=== PATIENT | male | born 1955 | race Caucasian/White ===

== ENCOUNTER → 2017-04-11 | Outpatient (CLI) | payer OTHER ==
[2017-04-11 14:45] LABS: BASO # 0.1 10*3/uL (0.0-0.1); BASO % 0.5 % (0.0-1.0); EOS # 0.2 10*3/uL (0.0-0.4); HEMATOCRIT 46.6 % (42.0-52.0); LYMPH # 3.9 10*3/uL (1.3-4.4); LYMPH % 33.1 % (27.0-41.0); MEAN CELL VOLUME 90.3 fl (80.0-94.0); MEAN CORPUSCULAR HGB CONC 34.3 g/dl (33.0-37.0); MEAN PLATELET VOLUME 8.9 fl (9.6-12.3); MONO # 0.5 10*3/uL (0.1-1.0); MONO % 4.3 % (3.0-9.0); NEUT % 59.8 % (47.0-73.0); PLATELET COUNT AUTOMATED 280 10*3/uL (130-400); RED BLOOD COUNT 5.16 10*6/uL (4.50-5.90); RED CELL DISTRI WIDTH 13.2 % (0-14.5); WHITE BLOOD COUNT 11.6 10*3/uL (4.8-10.8)
== END | disposition home or self-care (01) ==
LOC: LAB 14:27
PROVIDERS: Internal Medicine Endocrinology, Diabetes & Metabolism
DX: E11.65 Type 2 diabetes mellitus with hyperglycemia (principal); R53.83 Other fatigue; E29.1 Testicular hypofunction; E05.90 Thyrotoxicosis, unspecified without thyrotoxic crisis or storm; E55.9 Vitamin D deficiency, unspecified

== ENCOUNTER 2018-08-18 14:35 | Inpatient (IN) | payer OTHER ==
[~2018-08-18] VITALS: Ht 170.1 cm; Wt 106.8 kg
[2018-08-18] VITALS (7 sets, daily range): BP systolic 102–125; BP diastolic 49–73
--- NOTE | ~2018-08-18 | EKG ---
[place], [place] ELECTROCARDIOGRAM REPORT NAME: JOSETTE QUINTEROS UNIT #: [id number] ROOM: [facility] DOCTOR: RAZA DRAFT REPORT BIRTHDATE: [birth year] [facility] Test Date: 2018-08-18 Test Time: 17:01:38 Pat Name: JOSETTE QUINTEROS Department: Room: [facility] Gender: M Director Erp: Giselle Howe : 1955 Requested By: LUANA CARTY PA-C Order Number: [id number] Reading MD: Alana Montiel MD Measurements Intervals [place] Rate: 92 P: 33 ND: 150 QRS: 51 QRSD: 147 T: -1 QT: 409 QTc: 507 Interpretive Statements Sinus rhythm Right bundle branch block Lateral infarct, acute Electronically Signed On 08-20-2018 9:55:28 PDT by Alana Montiel MD CM:EKGRPT:ELECTROCARDIOGRAM REPORT [id number] LUANA CARTY PA-C EPIPHANY DRAFT REPORT LUANA CARTY PA-C
[2018-08-18 16:11] LABS: BILIRUBIN NEGATIVE (NEGATIVE); BLOOD TRACE-LYSED (NEGATIVE); CLARITY CLEAR (CLEAR); COLOR YELLOW (YELLOW); GLUCOSE 3+ (NEGATIVE); KETONE TRACE (NEGATIVE); LEUKO ESTERASE TRACE (NEGATIVE); NITRITE NEGATIVE (NEGATIVE); SPECIFIC GRAVITY <= 1.005 (1.005-1.030); UROBILINOGEN 0.2 E.U./dl (0.2-1.0)
[2018-08-18 16:17] LABS: BASO # 0.1 10*3/uL (0.0-0.1); BASO % 0.5 % (0.0-1.0); EOS # 0.2 10*3/uL (0.0-0.4); EOS % 1.1 % (1.0-4.0); HEMATOCRIT 47.1 % (42.0-52.0); HEMOGLOBIN 16.7 g/dl (14.0-18.0); LYMPH # 2.9 10*3/uL (1.3-4.4); MEAN CELL VOLUME 88.2 fl (80.0-94.0); MEAN CORPUSCULAR HGB 31.3 pg (27.0-31.0); MEAN CORPUSCULAR HGB CONC 35.5 g/dl (33.0-37.0); MEAN PLATELET VOLUME 10.5 fl (9.6-12.3); MONO # 0.7 10*3/uL (0.1-1.0); MONO % 5.4 % (3.0-9.0); NEUT # 9.3 10*3/uL (2.3-7.9); NEUT % 70.5 % (47.0-73.0); PLATELET COUNT AUTOMATED 307 10*3/uL (130-400); RED BLOOD COUNT 5.34 10*6/uL (4.50-5.90); RED CELL DISTRI WIDTH 11.9 % (0-14.5); WHITE BLOOD COUNT 13.2 10*3/uL (4.8-10.8)
[2018-08-18 16:37] LABS: BACTERIA 1+; YEAST 2+
[2018-08-18 16:48] LABS: ALBUMIN 3.1 gm/dl (3.1-4.5); ALKALINE PHOSPHATASE 120 U/L (45-117); BUN 25 mg/dl (7-24); CHLORIDE 87 mmol/L (98-107); CREATININE 1.58 mg/dL (0.70-1.30); LIPASE 1087 U/L (73-393); POTASSIUM 4.3 mmol/L (3.5-5.1); SGOT/AST 7 IU/L (3-35); SGPT/ALT 14 U/L (12-78); SODIUM 122 mmol/L (136-145); TOTAL PROTEIN 6.8 gm/dL (6.4-8.2)
[2018-08-18 17:11] LABS: TROPONIN I < 0.015 ng/ml (<0.045)
[2018-08-18 17:57] LABS: ABG BASE EXCESS -4.7 mmol/L (-2.0-2.0); ABG HCO3 18.6 mmol/l (22-26); ABG O2 SATURATION 98.5 % (95-97); ARTERIAL BLOOD GAS PCO2 31.8 mmHg (35-45); ARTERIAL BLOOD GAS PH 7.385 (7.35-7.45); ARTERIAL BLOOD GAS PO2 98.9 mmHg (80-90)
--- NOTE | 2018-08-18 18:39 | NUR ---
DR RICHARDSON VERBAL ORDER TO GIVE 20MEQ OF POTASSIUM PER 1,000ML OF NORMAL SALINE. PATIENT IS ON BAG #2. WILL GIVE 40MEQ OF POTASSIUM UPON ARRIVAL BACK TO ROOM FROM CT SCAN.
--- NOTE | 2018-08-18 18:55 | NUR ---
PATIENT LACTIC 3.4 CALLED CRITICAL RESULT. LUANA DIOR NOTIFIED.
--- NOTE | 2018-08-18 19:05 | NUR ---
PATIENT REPORT TO NIEVES GIRARD.
--- NOTE | 2018-08-18 19:27 | NUR ---
CRITICAL BLOOD SUGAR OF [address] TAYLOR.
--- NOTE | 2018-08-18 20:00 | NUR ---
Time: 1999 A 62 year old MALE admitted to [facility] under services of DARLENE GAYTAN DO. Pt. arrived via bed from ER. Chief complaint: FREQUENT DIARRHEA, FREQUENT URINATION, SORE THROAT X COUPLE DAYS, NOT ABLE TO GET A BLOOD GLUCOSE LEVEL DUE TO HIGH SUGAR. INITIAL ASSESSMENT COMPLETED - SEE ASSESSMENT SCREEN. INSULIN DRIP IS RUNNING AT 8 UNITS/HOUR AT THIS TIME WITH NORMAL SALINE. PT VOICES NO COMPLAINTS AT THIS TIME. HEALTHY LIFESTYLES GUIDELINE REVIEWED. BELONGINGS ACCOUNTED FOR. BED IS LOCKED AND IN THE LOWEST POSITION, CALL LIGHT IS WITHIN REACH. ROBERTO GONZALES
[2018-08-18] MEDS ORDERED: GLUCOPHAGE1000 MG PO (20:34)
[2018-08-18] MEDS ORDERED: LISINOPRIL30 MG PO (20:35)
[2018-08-18] MEDS ORDERED: PRAVACHOL40 MG PO (20:35)
--- NOTE | 2018-08-18 20:36 | NUR ---
MED LIST DONE WITH PT. HE KNOWS HIS HOME MEDS. SEE MED LIST.
--- NOTE | 2018-08-18 21:10 | NUR ---
NOTIFIED OF CONT ELEVATED LACTIC ACID.
--- NOTE | 2018-08-18 21:52 | NUR ---
OLD DRY SCABBED AREA RIGHT MELO. NO PICS TAKEN IN ER. OCCURRED 2 MONTHS AGO.
--- NOTE | 2018-08-18 22:20 | NUR ---
RESTING IN BED WATCHING TV. CALL LIGHT IN REACH. INSULIN GTT CONT AT 11UINTS/HR. NSS INFUSING AT 150CC/HR. NO C/O'S N/V VOICED AT PRESENT.
[2018-08-19] VITALS: BP 108/72
--- NOTE | 2018-08-19 00:14 | NUR ---
RESTING IN BED WITH EYES CLOSED. APPEARS TO BE SLEEPING. TITRATING INSULIN GTT DOWN FOR DECREASING BLOOD SUGARS. PT IS ASYMPTOMATIC. WILL CONT TO MONITOR. WAITING ON LAB FOR 0000 BASIC METABOLIC PANEL TO BE DRAWN.
[2018-08-19 00:52] LABS: BUN 20 mg/dl (7-24); CHLORIDE 106 mmol/L (98-107); CREATININE 1.16 mg/dL (0.70-1.30)
[2018-08-19 00:55] LABS: POTASSIUM 3.1 mmol/L (3.5-5.1); SODIUM 137 mmol/L (136-145)
--- NOTE | 2018-08-19 01:17 | NUR ---
DR. BLUE CALLED WITH BMP RESULTS. WILL PUT IN ORDERS.
--- NOTE | 2018-08-19 01:42 | NUR ---
TOOK PO KDUR WITHOU DIFFICULTY. IV FLUIDS SWITCHED TO D5/1/2 NSS AT 150CC/HR
[2018-08-19 04:00] VITALS: BP 98/52
[2018-08-19 05:43] LABS: BUN 20 mg/dl (7-24); CHLORIDE 105 mmol/L (98-107); CREATININE 1.14 mg/dL (0.70-1.30); POTASSIUM 3.6 mmol/L (3.5-5.1); SODIUM 137 mmol/L (136-145)
[2018-08-19 05:48] LABS: CHOLESTEROL 162 mg/dL (<200); HDL CHOLESTEROL 34 mg/dl (40-60); LDL CHOLESTEROL 82 mg/dL (9-159); PHOSPHOROUS 2.6 mg/dL (2.5-4.9); TRIGLYCERIDES 229 mg/dl (<150); VLDL CHOLESTEROL 46 mg/dL (6-40)
[2018-08-19 05:54] LABS: THYROID STIM HORMONE (HS) 0.546 uIU/ml (0.358-4.75)
[2018-08-19 06:01] LABS: ACT PARTIAL THROMBO TIME 21.7 SECONDS (20.8-31.5)
[2018-08-19 06:04] LABS: BASO % 0.3 % (0.0-1.0); EOS # 0.1 10*3/uL (0.0-0.4); EOS % 0.9 % (1.0-4.0); HEMATOCRIT 43.5 % (42.0-52.0); LYMPH # 3.9 10*3/uL (1.3-4.4); LYMPH % 31.3 % (27.0-41.0); MEAN CORPUSCULAR HGB 30.8 pg (27.0-31.0); MEAN CORPUSCULAR HGB CONC 33.3 g/dl (33.0-37.0); MEAN PLATELET VOLUME 10.5 fl (9.6-12.3); MONO # 0.7 10*3/uL (0.1-1.0); MONO % 5.7 % (3.0-9.0); NEUT # 7.6 10*3/uL (2.3-7.9); NEUT % 61.2 % (47.0-73.0); PLATELET COUNT AUTOMATED 217 10*3/uL (130-400); RED BLOOD COUNT 4.71 10*6/uL (4.50-5.90); RED CELL DISTRI WIDTH 11.9 % (0-14.5); WHITE BLOOD COUNT 12.4 10*3/uL (4.8-10.8)
[2018-08-19 06:06] LABS: HEMOGLOBIN 14.5 g/dl (14.0-18.0); MEAN CELL VOLUME 92.4 fl (80.0-94.0)
--- NOTE | 2018-08-19 06:09 | NUR ---
SU BHAKTA CALLED WITH AM LABS. GAP REMAINS 8. PT APPEARS TO BE SLEEPING. INSULIN GTT CONT AT 3UNITS/HR. IV FLUIDS MAINTAINED. NO DISTRESS NOTED. CONDITION GUARDED.
[2018-08-19 08:00] VITALS: BP 92/60
--- NOTE | 2018-08-19 08:34 | NUR ---
PT AAO X 3. VSS. IV INSULIN AND D5 GTTS INFUSING PER ORDER. PT DENIES COMPLAINTS AT THIS TIME. NO ACUTE DISTRESS NOTED.
[2018-08-19 09:20] LABS: VITAMIN D, 25-HYDROXY 15.3 ng/mL (30-100)
--- NOTE | 2018-08-19 09:40 | NUR ---
DR MICHAUD IN TO SEE PT. UPDATED HIM ON PT'S CONDITION AND PLAN OF CARE.
--- NOTE | 2018-08-19 10:47 | NUR ---
2 units humalog insulin sq given to pt per order of Dr Ulloa. will d/c insulin gtt in 30 minutes.
--- NOTE | 2018-08-19 11:00 | NUR ---
Binder Cutter Hand in to talk to patient. Patient states lives at home with his . There are 0 steps in the home. Physician: Dr. Guerrero at [facility] in [place] Pharmacy: [facility] Home health services: none Patient's level of ADLs: INDEPENDENT Patient has working utilities: yes DME: none Follow-up physician's appointment after d/c: will be made by the hospitalist nurse director upon discharge Does patient want to access PORTAL?: no Discharge plan discussed with patient. He lives at home with his . He is independent in his ADLs and ambulation. Discussed home health care services and he denies any home needs at this time. When medically stable he will be discharged to home. JOY MG
[2018-08-19 12:00] VITALS: BP 106/65
--- NOTE | 2018-08-19 12:09 | NUR ---
PT'S FAMILY IN TO VISIT.
--- NOTE | 2018-08-19 12:30 | NUR ---
IV D5 1/2 NS D/C'D PER ORDER OF DR MICHAUD.
[2018-08-19 13:00] LABS: BUN 15 mg/dl (7-24); CHLORIDE 105 mmol/L (98-107); CREATININE 0.88 mg/dL (0.70-1.30); POTASSIUM 3.8 mmol/L (3.5-5.1); SODIUM 135 mmol/L (136-145)
[2018-08-19 16:00] VITALS: BP 105/75
--- NOTE | 2018-08-19 16:20 | NUR ---
PT'S FAMILY IN TO VISIT.
[2018-08-19 19:15] LABS: BUN 13 mg/dl (7-24); CHLORIDE 104 mmol/L (98-107); CREATININE 0.99 mg/dL (0.70-1.30); POTASSIUM 3.8 mmol/L (3.5-5.1); SODIUM 134 mmol/L (136-145)
[2018-08-19 20:00] VITALS: BP 112/54
--- NOTE | 2018-08-19 20:07 | NUR ---
1952 RESTING IN BED TALKING WITH . VS STABLE. HEP LOCK'S INTACT X'S 2 BILATERAL ARMS. CALL LIGHT IN REACH. NO C/O'S VOICED.
--- NOTE | 2018-08-19 22:05 | NUR ---
2200 RESTING IN BED WATCHING TV. NO DISTRESS NOTED.
[2018-08-20] VITALS: BP 106/61
--- NOTE | 2018-08-20 00:07 | NUR ---
RESTING IN BED WITH EYES CLOSED. APPEARS TO BE SLEEPING.
[2018-08-20 04:00] VITALS: BP 113/60
--- NOTE | 2018-08-20 04:05 | NUR ---
REMAINS SLEEPING WITHOUT DISTRESS.
--- NOTE | 2018-08-20 06:06 | NUR ---
SLEPT WELL THIS SHIFT. REMAINS WITHOUT C/O'S. CONDITION GUARDED.
[2018-08-20 06:20] LABS: BASO % 0.4 % (0.0-1.0); EOS # 0.3 10*3/uL (0.0-0.4); EOS % 2.6 % (1.0-4.0); HEMATOCRIT 44.2 % (42.0-52.0); HEMOGLOBIN 15.2 g/dl (14.0-18.0); LYMPH # 3.7 10*3/uL (1.3-4.4); LYMPH % 39.1 % (27.0-41.0); MEAN CELL VOLUME 89.5 fl (80.0-94.0); MEAN CORPUSCULAR HGB 30.8 pg (27.0-31.0); MEAN CORPUSCULAR HGB CONC 34.4 g/dl (33.0-37.0); MONO # 0.5 10*3/uL (0.1-1.0); MONO % 5.4 % (3.0-9.0); NEUT % 52.1 % (47.0-73.0); PLATELET COUNT AUTOMATED 225 10*3/uL (130-400); RED BLOOD COUNT 4.94 10*6/uL (4.50-5.90); WHITE BLOOD COUNT 9.6 10*3/uL (4.8-10.8)
[2018-08-20 06:45] LABS: ALBUMIN 2.6 gm/dl (3.1-4.5); ALKALINE PHOSPHATASE 97 U/L (45-117); BUN 11 mg/dl (7-24); CHLORIDE 106 mmol/L (98-107); PHOSPHOROUS 2.2 mg/dL (2.5-4.9); POTASSIUM 4.2 mmol/L (3.5-5.1); SGOT/AST 11 IU/L (3-35); SGPT/ALT 13 U/L (12-78); SODIUM 135 mmol/L (136-145)
[2018-08-20 08:00] VITALS: BP 95/54
--- NOTE | 2018-08-20 08:55 | NUR ---
PT AAOX3. VSS. SBP 95. WILL NOTIFY DOCTOR. PT DENIES COMPLAINTS. NO ACUTE DISTRESS NOTED.
--- NOTE | 2018-08-20 09:00 | NUR ---
Manganese Wheeler in to see patient. No new needs or request at this time. He denies any home needs. When medically stable he will be discharged to home.
--- NOTE | 2018-08-20 09:30 | NUR ---
DR MICHAUD IN TO SEE PT. UPDATED PT ON PT'S CONDITION AND PLAN OF CARE. PT TO BE DISCAHRGED.
--- NOTE | 2018-08-20 09:35 | NUR ---
DR RAE NOTIFIED OF PT'S AM BP AND HOLDING OF PT'S AM DOSE OF ZESTRIL.
[2018-08-20] MEDS ORDERED: VICTOZA 3-PAK6 MG/ML SC (09:44)
[2018-08-20 12:00] VITALS: BP 97/48
--- NOTE | 2018-08-20 13:45 | NUR ---
Discharge instructions reviewed with patient. Patient receptive and verbalizes understanding. Follow-up care arranged. Written instructions given to patient. DOUGLAS YANCEY
== END 2018-08-20 13:45 | disposition home or self-care (01) | DRG 637 ==
LOC: ED 14:35 → ICCU 17:43 → EDHOLD 17:43 → ICCU 19:46
PROVIDERS: Internal Medicine; Physician Assistant; ADMIT Internal Medicine
DX: E11.10 Type 2 diabetes mellitus with ketoacidosis without coma (principal); N17.0 Acute kidney failure with tubular necrosis; E43 Unspecified severe protein-calorie malnutrition; R65.10 Systemic inflammatory response syndrome (SIRS) of non-infectious origin without acute organ dysfunction; E66.9 Obesity, unspecified; J02.9 Acute pharyngitis, unspecified; I10 Essential (primary) hypertension; E87.6 Hypokalemia; R82.71 Bacteriuria; E83.39 Other disorders of phosphorus metabolism; Z96.643 Presence of artificial hip joint, bilateral; R19.7 Diarrhea, unspecified; Z79.84 Long term (current) use of oral hypoglycemic drugs; Z82.49 Family history of ischemic heart disease and other diseases of the circulatory system; Z80.0 Family history of malignant neoplasm of digestive organs; Z80.8 Family history of malignant neoplasm of other organs or systems; Z79.899 Other long term (current) drug therapy; Z71.6 Tobacco abuse counseling; Z68.36 Body mass index [BMI] 36.0-36.9, adult

== ENCOUNTER → 2023-09-04 | Outpatient (CLI) | payer OTHER ==
[~2023-09-04] MED LIST: GLUCOPHAGE1000 MG PO; LISINOPRIL30 MG PO; PRAVACHOL40 MG PO; VICTOZA 3-PAK6 MG/ML SC
[2023-09-04 12:23] LABS: ALKALINE PHOSPHATASE 89 U/L (46-116); BUN 11 mg/dl (9-23); CHLORIDE 101 mmol/L (98-107); CHOLESTEROL 211 mg/dL (<200); LDL CHOLESTEROL 141 mg/dL (9-159); POTASSIUM 3.6 mmol/L (3.4-5.1); TOTAL PROTEIN 6.9 gm/dL (6.0-8.0); TRIGLYCERIDES 121 mg/dl (<150)
[2023-09-04 12:25] LABS: SGPT/ALT < 7 U/L (5-49)
[2023-09-04 14:59] LABS: URINE CREATININE RANDOM 108.48 mg/dL
== END | disposition home or self-care (01) ==
LOC: LAB 11:35
PROVIDERS: ATTEND Family Medicine
DX: Z11.59 Encounter for screening for other viral diseases (principal); E11.69 Type 2 diabetes mellitus with other specified complication; E66.9 Obesity, unspecified

== ENCOUNTER → 2024-02-01 | Outpatient (CLI) | payer OTHER | END | disposition home or self-care (01) | LOC: ORTHO 00:25 | PROVIDERS: ATTEND Orthopaedic Surgery | DX: M25.551 Pain in right hip (principal); M25.552 Pain in left hip ==

== ENCOUNTER → 2024-03-28 | Outpatient (CLI) | payer OTHER ==
[2024-03-28 10:57] LABS: URINE CREATININE RANDOM 65.37 mg/dL
[2024-03-28 11:22] LABS: ALKALINE PHOSPHATASE 70 U/L (46-116); BUN 11 mg/dl (9-23); CHLORIDE 105 mmol/L (98-107); CHOLESTEROL 141 mg/dL (<200); LDL CHOLESTEROL 76 mg/dL (9-159); POTASSIUM 4.2 mmol/L (3.4-5.1); SGPT/ALT < 7 U/L (5-49); TOTAL PROTEIN 6.7 gm/dL (6.0-8.0); TRIGLYCERIDES 76 mg/dl (<150)
== END | disposition home or self-care (01) ==
LOC: LAB 10:18
PROVIDERS: ATTEND Family Medicine
DX: Z11.59 Encounter for screening for other viral diseases (principal); E11.69 Type 2 diabetes mellitus with other specified complication; E66.9 Obesity, unspecified

== ENCOUNTER → 2025-01-25 | Outpatient (CLI) | payer MEDICARE ==
[2025-01-25 14:20] LABS: BUN 14 mg/dl (9-23); LDL CHOLESTEROL 144 mg/dL (9-159); SGPT/ALT < 7 U/L (5-49)
== END | disposition home or self-care (01) ==
LOC: LAB 11:55
PROVIDERS: ATTEND Family Medicine
DX: E11.29 Type 2 diabetes mellitus with other diabetic kidney complication (principal); R80.9 Proteinuria, unspecified; Z12.5 Encounter for screening for malignant neoplasm of prostate

== ENCOUNTER → 2025-04-07 | Outpatient (CLI) | payer MEDICARE | END | disposition home or self-care (01) | LOC: RAD 12:57 | PROVIDERS: ATTEND General Practice | DX: M47.817 Spondylosis without myelopathy or radiculopathy, lumbosacral region (principal); M51.361 Other intervertebral disc degeneration, lumbar region with lower extremity pain only; M25.78 Osteophyte, vertebrae ==